=== PATIENT | female | born 1995 | race Caucasian/White ===

== ENCOUNTER 2017-10-06 01:50 | Emergency (ER) | payer OTHER ==
[~2017-10-06] VITALS: Ht 165.1 cm; Wt 50.0 kg
[2017-10-06] MEDS ORDERED: SODIUM CHLOR 0.9% 1000 ML INJ 1,000 ML IV SCH (01:56)
[2017-10-06] MEDS ORDERED: ONDANSETRON HCL 4 MG/2 ML VIAL IVP ONE (02:00)
[2017-10-06] MEDS ORDERED: MORPHINE SULFATE 4 MG/ML INJ IV PUSH ONE (02:00)
[2017-10-06] MEDS ORDERED: SODIUM CHLORIDE 0.9% FLUSH 10 ML FLUSH IV FLUSH PRN (02:00)
--- NOTE | 2017-10-06 02:00 | PD ---
HPI Chief Complaint: abdominal pain Time Seen by Provider: 01:56 Travel History International Travel<30 days: No Contact w/Intl Traveler<30days: No Traveled to known affect area: No History of Present Illness HPI 22-year-old female patient with history of abdominal pain and gallbladder issues , presents to the ER today with right upper quadrant abdominal pain, nausea, vomiting, and currently rates her pain at 10 out of 10. She states that she has had exacerbations of "gallbladder issues" in the past and this happens often times when she eats certain types of foods. She states that tonight she was drinking alcohol and then started feeling sick. She denies any fevers or other issues. Modifying Factors: None Associated Signs & Symptoms: Right upper quadrant abdominal pain, nausea, vomiting Risk Factors: History of gallbladder issues PFSH Past Medical History ADHD: No Autoimmune Disease: No Blood Disorders: No Bipolar Disorder: Yes Anxiety: Yes Depression: Yes Cancer: No Cardiovascular Problems: No Diabetes: No Diminished Hearing: No GERD: Yes Genitourinary: No Musculoskeletal: No Neurologic: Yes Psychiatric: Yes (BIPOLAR, ANXIETY ) Respiratory: No Immunizations Current: Yes Migraines: Yes Seizures: Yes (PSYCHOGENIC SEIZURES AT AGE14 YRS--TESTED AT [facility]) Sleep Apnea: Yes (questionable) Thyroid Disease: No Ulcer: No Past Surgical History Other Surgery: No Social History Alcohol Use: Yes (occ) Tobacco Use: No Substance Use: Yes Allergies-Medications (Allergen,Severity, Reaction): Coded Allergies: Sulfa (Sulfonamide Antibiotics) (Verified Allergy, Severe, 10/06/17) divalproex sodium (Verified Allergy, Unknown, 10/06/17) fluoxetine (Verified Allergy, Unknown, 10/06/17) Reported Meds & Prescriptions Reported Meds & Active Scripts Active No Active Prescriptions or Reported Medications Review of Systems Except as stated in HPI: all other systems reviewed are Neg Physical Exam Narrative GENERAL: Well-developed young female patient currently in moderate distress. Awake and oriented 3. SKIN: Focused skin assessment warm/dry. HEAD: Atraumatic. Normocephalic. EYES: Pupils equal and round. No scleral icterus. No injection or drainage. ENT: No nasal bleeding or discharge. Mucous membranes pink and moist. NECK: Trachea midline. No JVD. Supple. CARDIOVASCULAR: Regular rate and rhythm. No murmur appreciated. RESPIRATORY: No accessory muscle use. Clear to auscultation. Breath sounds equal bilaterally. GASTROINTESTINAL: Abdomen soft, epigastric and right upper quadrant abdominal tenderness without guarding or rebound, nondistended. Hepatic and splenic margins not palpable. MUSCULOSKELETAL: No obvious deformities. No clubbing. No cyanosis. No edema. NEUROLOGICAL: Awake and alert. No obvious cranial nerve deficits. Motor grossly within normal limits. Normal speech. PSYCHIATRIC: Appropriate mood and affect; insight and judgment normal. Data Data Last Documented VS Vital Signs Date Time Temp Pulse Resp B/P (MAP) Pulse Ox O2 Delivery O2 Flow Rate FiO2 10/06/17 04:51 103 16 93/50 (64) 98 Room Air 10/06/17 02:05 97.9 Orders Orders Complete Blood Count With Diff (10/06/17 01:56) Comprehensive Metabolic Panel (10/06/17 01:56) Lipase (10/06/17 01:56) Urinalysis - C+S If Indicated (10/06/17 01:56) Us Abdomen Gallbladder (10/06/17 ) Iv Access Insert/Monitor (10/06/17 01:56) Ecg Monitoring (10/06/17 01:56) Oximetry (10/06/17 01:56) Morphine Inj (Morphine Inj) (10/06/17 02:00) Ondansetron Inj (Zofran Inj) (10/06/17 02:00) Sodium Chlor 0.9% 1000 Ml Inj (Ns 1000 M (10/06/17 01:56) Sodium Chloride 0.9% Flush (Ns Flush) (10/06/17 02:00) Ed Urine Pregnancytest Poc (10/06/17 01:56) Ed Discharge Order (10/06/17 05:28) Labs Laboratory Tests Test 10/06/17 02:15 10/06/17 02:19 Urine Color YELLOW Urine Turbidity SLIGHT Urine pH 7.5 Urine Specific [place] 1.008 Urine Protein NEG mg/dL Urine Glucose (UA) NEG mg/dL Urine Ketones NEG mg/dL Urine Occult Blood NEG Urine Nitrite NEG Urine Bilirubin NEG Urine Leukocyte Esterase NEG Urine RBC 0-2 /hpf Urine WBC 0-2 /hpf Urine Squamous Epithelial Cells 6-8 /hpf Urine Amorphous Sediment MOD Urine Bacteria NONE /hpf Microscopic Urinalysis Comment CULT NOT INDICATED White Blood Count 5.3 TH/MM3 Red Blood Count 4.33 MIL/MM3 Hemoglobin 12.9 GM/DL Hematocrit 38.9 % Mean Corpuscular Volume 89.7 FL Mean Corpuscular Hemoglobin 29.7 PG Mean Corpuscular Hemoglobin Concent 33.0 % Red Cell Distribution Width 11.9 % Platelet Count 222 TH/MM3 Mean Platelet Volume 8.4 FL Neutrophils (%) (Auto) 52.2 % Lymphocytes (%) (Auto) 39.3 % Monocytes (%) (Auto) 7.4 % Eosinophils (%) (Auto) 0.3 % Basophils (%) (Auto) 0.8 % Neutrophils # (Auto) 2.8 TH/MM3 Lymphocytes # (Auto) 2.1 TH/MM3 Monocytes # (Auto) 0.4 TH/MM3 Eosinophils # (Auto) 0.0 TH/MM3 Basophils # (Auto) 0.0 TH/MM3 CBC Comment DIFF FINAL Differential Comment Blood Urea Nitrogen 9 MG/DL Creatinine 0.69 MG/DL Random Glucose 82 MG/DL Total Protein 7.1 GM/DL Albumin 3.9 GM/DL Calcium Level 8.5 MG/DL Alkaline Phosphatase 47 U/L Aspartate Amino Transf (AST/SGOT) 23 U/L Alanine Aminotransferase (ALT/SGPT) 16 U/L Total Bilirubin 0.5 MG/DL Sodium Level 140 MEQ/L Potassium Level 3.2 MEQ/L Chloride Level 104 MEQ/L Carbon Dioxide Level 26.9 MEQ/L Anion Gap 9 MEQ/L Estimat Glomerular Filtration Rate 106 ML/MIN Lipase 142 U/L MDM Medical Decision Making Medical Screen Exam Complete: Yes Emergency Medical Condition: Yes Medical Record Reviewed: Yes Interpretation(s) Laboratory Tests Test 10/06/17 02:15 10/06/17 02:19 Urine Squamous Epithelial Cells 6-8 /hpf (0-5) Potassium Level 3.2 MEQ/L (3.5-5.1) Differential Diagnosis Nausea, vomiting, right upper quadrant abdominal pains: Gastritis versus pancreatitis versus cholecystitis versus gastroenteritis versus dehydration versus metabolic issues Narrative Course Patient states that she has had a CAT scan about 8 months ago, did not have any gallstones, but states that she is currently being evaluated for gallbladder issues. She has not yet had a chance to follow-up with a GI doctor. She is requesting that I do not put in a CAT scan for her since she has had multiple studies before. Lab work did not show significant metabolic issues. She has an ultrasound exam which was fairly unremarkable. She was given IV fluids, nausea medications and may medications and on reevaluation at 5:20 AM is doing well, resting. My plan would be to release her with follow-up to primary care physician and GI doctor. Return for worsening in symptoms as needed. The plan has been discussed with her and she states understanding. Diagnosis Primary Impression: Abdominal pain Med/Other Pt SpecificInfo: Prescription(s) given Scripts Ondansetron Odt (Zofran Odt) 4 Mg Tab 4 MG SL Q6HR Y for Nausea/Vomiting, #7 TAB 0 Refills Prov: Moi Kwong MD 10/06/17 Dicyclomine (Bentyl) 10 Mg Cap 10 MG PO TID Y for Bowel Management, #15 CAP 0 Refills Prov: Moi Kwong MD 10/06/17 Disposition: 01 DISCHARGE HOME Condition: Stable Moi Kwong MD Oct 06, 2017 02:00
[2017-10-06 02:05] VITALS: BP 88/72; PULSE 78; RESP 22; TEMP 97.9; O2SAT 100
[2017-10-06 02:28] VITALS: O2SAT 97
[2017-10-06 02:37] LABS: AUTOMATED NEUTROPHIL # 2.8 TH/MM3 (1.8-7.7); BASOPHIL % 0.8 % (0.0-2.0); EOSINOPHIL % 0.3 % (0.0-4.0); HEMATOCRIT 38.9 % (35.0-46.0); HEMOGLOBIN 12.9 GM/DL (11.6-15.3); LYMPH % 39.3 % (9.0-44.0); LYMPHOCYTE # 2.1 TH/MM3 (1.0-4.8); MEAN CELL VOLUME 89.7 FL (80.0-100.0); MEAN CORPUSCULAR HEMOGLOBIN 29.7 PG (27.0-34.0); MEAN PLATELET VOLUME 8.4 FL (7.0-11.0); MONO % 7.4 % (0.0-8.0); MONOCYTE # 0.4 TH/MM3 (0-0.9); NEUT % 52.2 % (16.0-70.0); PLATELET COUNT 222 TH/MM3 (150-450); RED BLOOD COUNT 4.33 MIL/MM3 (4.00-5.30); RED CELL DISTRIBUTION WIDTH 11.9 % (11.6-17.2); WHITE BLOOD COUNT 5.3 TH/MM3 (4.0-11.0)
[2017-10-06 02:38] LABS: BILIRUBIN, URINE NEG (NEG); BLOOD, URINE NEG (NEG); GLUCOSE,URINE NEG (NEG); KETONE, URINE NEG (NEG); NITRITE,URINE NEG (NEG); PH, URINE 7.5 (5.0-8.5); URINE LEUKOCYTE ESTERASE NEG (NEG)
[2017-10-06 02:40] VITALS: BP 98/61; PULSE 71; RESP 16; O2SAT 100
[2017-10-06 02:41] LABS: URINE COLOR YELLOW (YELLW/STRAW)
[2017-10-06 02:43] LABS: AMORPHOUS SEDIMENT, URINE MOD; RBC, URINE 0-2 /hpf (0-3); WBC, URINE 0-2 /hpf (0-5)
[2017-10-06 02:46] LABS: CHLORIDE 104 MEQ/L (98-107); SODIUM (NA) 140 MEQ/L (136-145)
[2017-10-06 02:49] LABS: CALCIUM 8.5 MG/DL (8.5-10.1)
[2017-10-06 02:50] LABS: ALBUMIN 3.9 GM/DL (3.4-5.0); BICARBONATE 26.9 MEQ/L (21.0-32.0); BLOOD UREA NITROGEN 9 MG/DL (7-18); GLUCOSE,RANDOM 82 MG/DL (74-106); LIPASE 142 U/L (73-393)
[2017-10-06 02:53] LABS: ALT (GPT) 16 U/L (10-53); AST (GOT) 23 U/L (15-37); CREATININE 0.69 MG/DL (0.50-1.00); GLOMERULAR FILTRATION RATE 106 ML/MIN (>89)
[2017-10-06 02:54] LABS: TOTAL BILIRUBIN ADULT 0.5 MG/DL (0.2-1.0); TOTAL PROTEIN 7.1 GM/DL (6.4-8.2)
[2017-10-06 02:55] LABS: ALKALINE PHOSPHATASE 47 U/L (45-117)
[2017-10-06 03:54] VITALS: BP 94/42; PULSE 81; RESP 16; O2SAT 99
[2017-10-06 04:51] VITALS: BP 93/50; PULSE 103; RESP 16; O2SAT 98
--- NOTE | 2017-10-06 05:24 | RADRPT ---
EXAM DATE/TIME: 10/06/2017 05:00 [place] COMPARISON: No previous studies available for comparison. INDICATIONS : Right upper quadrant pain. MEDICAL HISTORY : Gastroesophageal reflux disease. Seizures. Head trauma. Migraines. Bipolar disorder. Depression. Anxiety. Suicide attempt. Substance use. SURGICAL HISTORY : None. ENCOUNTER: Initial ACUITY: 1 day PAIN SCORE: 6/10 LOCATION: Right upper quadrant MEASUREMENTS: LIVER: 11.9 cm length COMMON DUCT: 5 mm RIGHT KIDNEY: 10.3 x 4.9 x 4.2 cm FINDINGS: LIVER: Normal echotexture without focal lesion or ductal dilatation. COMMON DUCT: No intraluminal mass or stone visualized. GALLBLADDER: Contains no stones, demonstrates no wall thickening or pericholecystic fluid. PANCREAS: The visualized portions are within normal limits. RIGHT KIDNEY: No evidence of hydronephrosis, stone, or mass. CONCLUSION: Normal examination. Luis Guzman MD on October 06, 2017 at 5:22 Board Certified Radiologist. This report was verified electronically.
[2017-10-06] MEDS ORDERED: ZOFR4TAB3 SL (05:29)
[2017-10-06] MEDS ORDERED: DICY10 PO (05:29)
[2017-10-06] MEDS ORDERED: POTASSIUM CHLORIDE 20 MEQ CONTROLLED RELEASE TAB PO ONE (05:30)
== END 2017-10-06 05:48 | disposition home or self-care (01) ==
LOC: PHED 01:50
DX: R10.9 Unspecified abdominal pain (principal); F31.9 Bipolar disorder, unspecified; K21.9 Gastro-esophageal reflux disease without esophagitis
CPT/HCPCS: 76705; 80053; 81001; 83690; 84703; 85025; 96361; 96374; 99285; J2270; J2405; J7030